=== PATIENT | male | born 1985 | race Caucasian/White ===

== ENCOUNTER 2019-03-20 09:02 | Emergency (ER) | payer BC, OTHER ==
[~2019-03-20] VITALS: Ht 188 cm; Wt 90.7 kg
[~2019-03-20 09:02] MED LIST: ALBU90OI INH; ALPR.25 PO; AMOCLA875 PO; AZIT500 PO; CEPH500 PO; CIPR500 PO; DIPATR PO; HYDACE10B; HYDACE5 PO; IBUP200 PO; PSEU30 PO; RXDIPATR PO; SULTRIDS PO
[2019-03-20] MEDS ORDERED: ONDA4ODT MM (09:14)
[2019-03-20] MEDS ORDERED: AMLO10 PO (09:15)
[2019-03-20 09:55] LABS: Source, Urine Clean Catch
[2019-03-20 09:58] LABS: Bilirubin, Urine Neg (Neg); Blood, Urine Neg (Neg); Glucose Qualitative, Urine Neg (Neg); Ketones, Urine 3+ (Neg); Leukocyte Esterase, Urine 1+ (Neg); Nitrite, Urine Neg (Neg); Protein, Urine 1+ (Neg); Urobilinogen, Urine NORM (Normal)
[2019-03-20 10:11] LABS: Appearance, Urine Clear (Clear); Color, Urine Yellow (P-Yellow)
[2019-03-20 10:14] LABS: Bacteria Rare /hpf; Red Blood Cells, Urine Rare /hpf (0-2); Squamous Epithelial Cells Not Seen /hpf (Few); White Blood Cells, Urine 0-2 /hpf (0-5)
[2019-03-20 10:25] LABS: BASOPHILS ABSOLUTE AUTO 0.08 K/mm3 (0.00-0.23); BASOPHILS PERCENT AUTO 0 % (0-2); EOSINOPHILS ABSOLUTE AUTO 0.06 K/mm3 (0.00-0.68); EOSINOPHILS PERCENT AUTO 0 % (0-6); Hematocrit 47.8 % (37.0-53.0); Hemoglobin 16.7 g/dL (13.5-17.5); IMMATURE GRAN ABSOLUTE AUTO 0.11 K/mm3 (0.00-0.10); IMMATURE GRAN PERCENT AUTO 1 % (0-1); LYMPHOCYTES ABSOLUTE AUTO 1.81 K/mm3 (0.84-5.20); LYMPHOCYTES PERCENT AUTO 8 % (21-46); MONOCYTES ABSOLUTE AUTO 1.45 K/mm3 (0.16-1.47); MONOCYTES PERCENT AUTO 6 % (4-13); Mean Corpuscular HGB 31.2 pg (26.0-34.0); Mean Corpuscular HGB Conc 34.9 g/dL (31.5-36.5); Mean Corpuscular Volume 89 fL (80-100); Mean Platelet Volume 10.5 fL (9.1-12.4); NEUTROPHILS ABSOLUTE AUTO 19.86 K/mm3 (1.96-9.15); NEUTROPHILS PERCENT AUTO 85 % (41-73); Platelet Count 382 K/mm3 (150-400); RDW Standard Deviation 42.5 fL (35.1-46.3); Red Blood Cell Count 5.35 M/mm3 (4.30-5.90); White Blood Cell Count 23.37 K/mm3 (4.00-11.30)
[2019-03-20 10:40] LABS: Alanine Aminotransfer (ALT/SGP 42 U/L (12-78); Albumin, Blood 4.9 g/dL (3.4-5.0); Albumin/Globulin Ratio 1.4 (0.8-1.8); Alk Phos 67 U/L (50-136); Anion Gap 10 mmol/L (6-16); Aspartate Aminotrans (AST/SGOT 19 U/L (12-37); Bilirubin, Total 0.7 mg/dL (0.1-1.0); Blood Urea Nitrogen 14 mg/dL (8-24); Bun/Creatinine Ratio 14.3 (12.0-20.0); CO2, Blood 23 mmol/L (21-32); Calcium, Blood 10.3 mg/dL (8.5-10.1); Chloride, Blood 108 mmol/L (98-108); Creatinine, Blood 0.98 mg/dL (0.60-1.20); Globulin, Blood 3.5 g/dL (2.2-4.0); Glomerular Filtration Rate >60 (60-); Glucose, Blood 115 mg/dL (70-99); Potassium, Blood 3.7 mmol/L (3.5-5.5); Sodium, Blood 141 mmol/L (136-145); Total Protein, Blood 8.4 g/dL (6.4-8.2)
[2019-03-20] MEDS ORDERED: Flagyl500 MG PO (12:37)
[2019-03-20] MEDS ORDERED: Colace100 MG PO (12:37)
[2019-03-20] MEDS ORDERED: Cipro500 MG PO (12:37)
[2019-03-20] MEDS ORDERED: Norco 5-325 Ta1 EACH PO (12:37)
== END 2019-03-20 12:49 | disposition home or self-care (01) ==
LOC: ER 09:02
PROVIDERS: Emergency Medicine
DX: K57.32 Diverticulitis of large intestine without perforation or abscess without bleeding (principal); F17.200 Nicotine dependence, unspecified, uncomplicated; Z79.899 Other long term (current) drug therapy
CPT/HCPCS: 36415; 74176; 80053; 81001; 83690; 85025; 87086; 96361; 96374; 96375; 99284-25; J1170; J2405; J7030

== ENCOUNTER 2019-03-24 23:18 | Inpatient (IN) | payer BC, OTHER ==
[~2019-03-24] VITALS: Ht 188 cm; Wt 90.7 kg
[~2019-03-24 23:18] MED LIST changes: +AMLO10 PO; +Cipro500 MG PO; +Colace100 MG PO; +Flagyl500 MG PO; +Norco 5-325 Ta1 EACH PO; +ONDA4ODT MM
[2019-03-25 00:42] LABS: BASOPHILS ABSOLUTE AUTO 0.05 K/mm3 (0.00-0.23); BASOPHILS PERCENT AUTO 0 % (0-2); EOSINOPHILS ABSOLUTE AUTO 0.45 K/mm3 (0.00-0.68); EOSINOPHILS PERCENT AUTO 4 % (0-6); Hemoglobin 14.4 g/dL (13.5-17.5); IMMATURE GRAN ABSOLUTE AUTO 0.08 K/mm3 (0.00-0.10); IMMATURE GRAN PERCENT AUTO 1 % (0-1); LYMPHOCYTES ABSOLUTE AUTO 1.74 K/mm3 (0.84-5.20); LYMPHOCYTES PERCENT AUTO 14 % (21-46); MONOCYTES ABSOLUTE AUTO 1.23 K/mm3 (0.16-1.47); MONOCYTES PERCENT AUTO 10 % (4-13); Mean Corpuscular HGB 30.7 pg (26.0-34.0); Mean Corpuscular HGB Conc 34.3 g/dL (31.5-36.5); Mean Corpuscular Volume 90 fL (80-100); NEUTROPHILS ABSOLUTE AUTO 9.29 K/mm3 (1.96-9.15); NEUTROPHILS PERCENT AUTO 72 % (41-73); Platelet Count 379 K/mm3 (150-400); RDW Coefficient Variation 12.7 % (11.7-14.2); RDW Standard Deviation 41.9 fL (35.1-46.3); Red Blood Cell Count 4.69 M/mm3 (4.30-5.90); White Blood Cell Count 12.84 K/mm3 (4.00-11.30)
[2019-03-25 01:00] LABS: Alanine Aminotransfer (ALT/SGP 20 U/L (12-78); Albumin, Blood 3.7 g/dL (3.4-5.0); Albumin/Globulin Ratio 0.9 (0.8-1.8); Alk Phos 67 U/L (50-136); Anion Gap 8 mmol/L (6-16); Aspartate Aminotrans (AST/SGOT 12 U/L (12-37); Bilirubin, Total 0.3 mg/dL (0.1-1.0); Blood Urea Nitrogen 9 mg/dL (8-24); Bun/Creatinine Ratio 9.6 (12.0-20.0); CO2, Blood 27 mmol/L (21-32); Chloride, Blood 104 mmol/L (98-108); Creatinine, Blood 0.94 mg/dL (0.60-1.20); Globulin, Blood 3.9 g/dL (2.2-4.0); Glomerular Filtration Rate >60 (60-); Glucose, Blood 100 mg/dL (70-99); Potassium, Blood 3.3 mmol/L (3.5-5.5); Sodium, Blood 139 mmol/L (136-145); Total Protein, Blood 7.6 g/dL (6.4-8.2)
--- NOTE | 2019-03-25 07:32 | NUR ---
TRANSFER NOTE: PT ARRIVED TO UNIT @ 0640. INDEPENDENTLY AMBULATES TO BED. GAIT IS STEADY. PT IS A&O X 4, COOPERATIVE, KIND. PT ADMITTED FOR DIVERTICULITIS c 2 SMALL ABSCESSES. PT HAS MINIMAL HEALTH HX, HTN AND PREVIOUS PNA NOTED. ADBOMEN IS DISTENDED, PT REPORTS NO BM X3 DAYS. RLQ IS MORE TENDER AND PAINFUL. PT RATES PAIN 1 OUT OF 10.
--- NOTE | 2019-03-25 15:34 | NUR ---
SUMMARY PT IS A/O X4, PLEASANT/COOPERATIVE. AMBULATES INDEPENDANT, DR ENCOURAGE HIM TO AMBULATE IN [place] PERIODICALLY, HE HAS BEEN UP MULT X'S TODAY. DX DIVERTICULITIS WITH [address] SMITH IN TO SEE HIM STATE NO NEED FOR SURG @ THIS TIME, CONTINUE NPO FOR NOW, CONTINUE CURRENT IV ANTIBX. PT STATE INTERMITTANT NAUSEA, PRN ZOFRAN THIS AFTERNOON FOR RELIEF. HE STATE L LOWER ABD PAIN, PRN FENTANYL 50 MCG GIVEN FOR RELIEF/CONTROL. HE STATE HAS BEEN PASSING GAS, 1 MED LOOSE STOOL TODAY. VSS.
[2019-03-26 05:48] LABS: BASOPHILS ABSOLUTE AUTO 0.07 K/mm3 (0.00-0.23); BASOPHILS PERCENT AUTO 1 % (0-2); EOSINOPHILS ABSOLUTE AUTO 0.21 K/mm3 (0.00-0.68); EOSINOPHILS PERCENT AUTO 2 % (0-6); Hematocrit 42.5 % (37.0-53.0); Hemoglobin 14.1 g/dL (13.5-17.5); IMMATURE GRAN PERCENT AUTO 2 % (0-1); LYMPHOCYTES ABSOLUTE AUTO 1.91 K/mm3 (0.84-5.20); LYMPHOCYTES PERCENT AUTO 15 % (21-46); MONOCYTES ABSOLUTE AUTO 1.03 K/mm3 (0.16-1.47); MONOCYTES PERCENT AUTO 8 % (4-13); Mean Corpuscular HGB 30.5 pg (26.0-34.0); Mean Corpuscular HGB Conc 33.2 g/dL (31.5-36.5); Mean Corpuscular Volume 92 fL (80-100); Mean Platelet Volume 10.2 fL (9.1-12.4); NEUTROPHILS ABSOLUTE AUTO 9.14 K/mm3 (1.96-9.15); NEUTROPHILS PERCENT AUTO 73 % (41-73); Platelet Count 383 K/mm3 (150-400); RDW Coefficient Variation 13.2 % (11.7-14.2); RDW Standard Deviation 44.8 fL (35.1-46.3); Red Blood Cell Count 4.63 M/mm3 (4.30-5.90); White Blood Cell Count 12.56 K/mm3 (4.00-11.30)
[2019-03-26 06:17] LABS: Alanine Aminotransfer (ALT/SGP 18 U/L (12-78); Albumin, Blood 3.4 g/dL (3.4-5.0); Albumin/Globulin Ratio 0.9 (0.8-1.8); Alk Phos 60 U/L (50-136); Anion Gap 14 mmol/L (6-16); Aspartate Aminotrans (AST/SGOT 11 U/L (12-37); Bilirubin, Total 0.3 mg/dL (0.1-1.0); Blood Urea Nitrogen 7 mg/dL (8-24); Bun/Creatinine Ratio 8.1 (12.0-20.0); CO2, Blood 14 mmol/L (21-32); Calcium, Blood 8.4 mg/dL (8.5-10.1); Chloride, Blood 113 mmol/L (98-108); Creatinine, Blood 0.86 mg/dL (0.60-1.20); Globulin, Blood 3.6 g/dL (2.2-4.0); Glomerular Filtration Rate >60 (60-); Glucose, Blood 68 mg/dL (70-99); Potassium, Blood 4.4 mmol/L (3.5-5.5); Sodium, Blood 141 mmol/L (136-145)
--- NOTE | 2019-03-26 06:44 | NUR ---
SHIFT SUMMARY PT IS A 33 Y/O MALE, ADMITTED FOR DIVERTICULITIS WITH ABSCESSES. HE IS A&O X 4, AND INDEPENDENT IN THE ROOM. THE PT DID REPORT SOME MILD L SIDE ABD AND BACK PAIN, FOR WHICH HE WAS MEDICATED X 1 WITH PRN NORCO. HE ALSO REPORTED OCCASIONAL NAUSEA THROUGHOUT THE NIGHT, FOR WHICH HE WAS MEDICATED X 1 WITH PRN REGLAN AND ZOFRAN. THE PT REPORTED THAT HE WAS FEELING "BETTER", THAT THE ABD BLOATING HAD DECREASED, AND THAT HE HOPED TO BE TAKEN OFF NPO AND BE ABLE TO EAT AND DRINK. VITALS REMAINED STABLE. NO OTHER ACUTE CHANGES IN PT CONDITION NOTED. WILL CONTINUE TO MONITOR AND TREAT PER EMAR.
--- NOTE | 2019-03-26 18:08 | NUR ---
SHIFT SUMMARY. PT DENIES SOB, N/V, PAIN. PT TOLERATED CLEAR LIQUIDS THIS AM, HAD A SMALL AMOUNT OF REGULAR DIET FOR LUNCH AND ATE 100% DINNER. CONTINUES WITH IV ABX. NO NEW CHANGES OR CONCERNS.
--- NOTE | 2019-03-26 18:19 | NUR ---
LATE ENTRY. PT STATES THAT HE HASN'T HAD A BEER IN 5 DAYS. CIWA 0 THIS SHIFT.
[2019-03-27 05:24] LABS: BASOPHILS PERCENT AUTO 1 % (0-2); EOSINOPHILS ABSOLUTE AUTO 0.39 K/mm3 (0.00-0.68); EOSINOPHILS PERCENT AUTO 3 % (0-6); Hematocrit 41.8 % (37.0-53.0); Hemoglobin 13.8 g/dL (13.5-17.5); IMMATURE GRAN PERCENT AUTO 1 % (0-1); LYMPHOCYTES ABSOLUTE AUTO 2.01 K/mm3 (0.84-5.20); LYMPHOCYTES PERCENT AUTO 14 % (21-46); MONOCYTES ABSOLUTE AUTO 1.25 K/mm3 (0.16-1.47); MONOCYTES PERCENT AUTO 9 % (4-13); Mean Corpuscular HGB 29.9 pg (26.0-34.0); Mean Corpuscular Volume 91 fL (80-100); Mean Platelet Volume 10.2 fL (9.1-12.4); NEUTROPHILS ABSOLUTE AUTO 10.32 K/mm3 (1.96-9.15); NEUTROPHILS PERCENT AUTO 72 % (41-73); Platelet Count 367 K/mm3 (150-400); RDW Coefficient Variation 13.2 % (11.7-14.2); RDW Standard Deviation 43.1 fL (35.1-46.3); Red Blood Cell Count 4.61 M/mm3 (4.30-5.90); White Blood Cell Count 14.27 K/mm3 (4.00-11.30)
--- NOTE | 2019-03-27 08:08 | NUR ---
SHIFT SUMMARY PT HAD NO ISSUES OR COMPLAINTS. PT SLEPT T/O SHIFT. PT SLEEPING BREATHING EASY. CALL LIGHT IN REACH.
--- NOTE | 2019-03-27 17:52 | NUR ---
SHIFT SUMMARY. PT DENIES SOB, N/V. MILD LOWER UMBILICAL ABD PAIN REPORTED WITH PALPATION THAT IS REPRODUCABLE. NO PAIN AT REST. PT DENIED NEED FOR PAIN MEDICATION. PT WITH GOOD MEAL INTAKE WITH REGULAR DIET. PT REPORTS HAVING BM'S AND PASSING FLATUS. REPEAT CT WITH CONTRAST COMPLETED TODAY. NO NEW CHANGES.
[2019-03-28 04:53] LABS: BASOPHILS ABSOLUTE AUTO 0.07 K/mm3 (0.00-0.23); BASOPHILS PERCENT AUTO 1 % (0-2); EOSINOPHILS ABSOLUTE AUTO 0.34 K/mm3 (0.00-0.68); EOSINOPHILS PERCENT AUTO 3 % (0-6); Hematocrit 42.3 % (37.0-53.0); Hemoglobin 14.4 g/dL (13.5-17.5); IMMATURE GRAN ABSOLUTE AUTO 0.24 K/mm3 (0.00-0.10); IMMATURE GRAN PERCENT AUTO 2 % (0-1); LYMPHOCYTES ABSOLUTE AUTO 1.88 K/mm3 (0.84-5.20); LYMPHOCYTES PERCENT AUTO 16 % (21-46); MONOCYTES ABSOLUTE AUTO 0.99 K/mm3 (0.16-1.47); MONOCYTES PERCENT AUTO 9 % (4-13); Mean Corpuscular HGB 30.3 pg (26.0-34.0); Mean Corpuscular Volume 89 fL (80-100); Mean Platelet Volume 9.9 fL (9.1-12.4); NEUTROPHILS ABSOLUTE AUTO 8.13 K/mm3 (1.96-9.15); NEUTROPHILS PERCENT AUTO 70 % (41-73); Platelet Count 438 K/mm3 (150-400); RDW Standard Deviation 42.5 fL (35.1-46.3); Red Blood Cell Count 4.76 M/mm3 (4.30-5.90); White Blood Cell Count 11.65 K/mm3 (4.00-11.30)
--- NOTE | 2019-03-28 05:10 | NUR ---
NOC SHIFT SUMMARY PT HAS BEEN PLEASANT AND COOPERATIVE WITH CARE THIS NIGHT. HAS NOT HAD ANY PAIN COMPLAINTS. VSS. NO ACUTE CHANGES NOTED THIS NIGHT. CURRENTLY APPEARS TO BE SLEEPING RESTFULLY. WILL CONTINUE TO MONITOR.
[2019-03-28 11:26] LABS: Anion Gap 6 mmol/L (6-16); Blood Urea Nitrogen 5 mg/dL (8-24); CO2, Blood 25 mmol/L (21-32); Calcium, Blood 8.9 mg/dL (8.5-10.1); Chloride, Blood 109 mmol/L (98-108); Glomerular Filtration Rate >60 (60-); Glucose, Blood 102 mg/dL (70-99); Potassium, Blood 3.7 mmol/L (3.5-5.5); Sodium, Blood 140 mmol/L (136-145)
[2019-03-28] MEDS ORDERED: Augmentin 875-1 EACH PO (14:56)
--- NOTE | 2019-03-28 15:16 | NUR ---
SUMMARY/DISCHARGE PT DISCHARGED TO HOME, PT AND SPOUSE VERBALIZED UNDERSTANDING OF DISCHARGE INSTRUCTIONS, PT ALREADY HAS A FOLLOW UP APPOINTMENT WITH HIS PCP, PT DECLINED A WHEELCHAIR AND WAS ABLE TO AMBULATE SAFELY TO THE ELEVATOR
--- NOTE | 2019-03-30 08:41 | NUR ---
LATE NOTE PT DISCHARGE ORDER SAID 500 MG IV FLAGYL TID, CONFIRMED WITH DR LOPES THE DOSE SHOULD BE 500 MG PO BID, PT INFORMED OF THE CORRECT DOSE AND CORRECTED DOSE SENT TO PT'S PHARMACY
== END 2019-03-28 15:07 | disposition home or self-care (01) | DRG 392 ==
LOC: ER 23:18 → MEDS 03-25 05:28
PROVIDERS: Emergency Medicine; Hospitalist; Surgery; ADMIT Internal Medicine
DX: K57.20 Diverticulitis of large intestine with perforation and abscess without bleeding (principal); E87.2 Acidosis; E87.6 Hypokalemia; I10 Essential (primary) hypertension; J45.909 Unspecified asthma, uncomplicated; F17.210 Nicotine dependence, cigarettes, uncomplicated; Z79.899 Other long term (current) drug therapy
CPT/HCPCS: 36415; 74018; 74177; 80048; 80053; 85025; 85027; 94760; 96361; 96365-59; 96375; 99285-25; A9270-GY; J1170; J1885; J2405; J2543; J2765; J3010; J3480; J7030; J7050; Q9967

== ENCOUNTER 2019-05-16 10:38 | Emergency (ER) | payer BC, OTHER ==
[~2019-05-16] VITALS: Ht 188 cm; Wt 90.7 kg
[~2019-05-16 10:38] MED LIST changes: +Augmentin 875-1 EACH PO
[2019-05-16 11:26] LABS: BASOPHILS ABSOLUTE AUTO 0.07 K/mm3 (0.00-0.23); BASOPHILS PERCENT AUTO 0 % (0-2); EOSINOPHILS ABSOLUTE AUTO 0.11 K/mm3 (0.00-0.68); EOSINOPHILS PERCENT AUTO 1 % (0-6); Hematocrit 44.7 % (37.0-53.0); Hemoglobin 15.5 g/dL (13.5-17.5); IMMATURE GRAN ABSOLUTE AUTO 0.07 K/mm3 (0.00-0.10); IMMATURE GRAN PERCENT AUTO 0 % (0-1); LYMPHOCYTES ABSOLUTE AUTO 1.84 K/mm3 (0.84-5.20); LYMPHOCYTES PERCENT AUTO 12 % (21-46); MONOCYTES ABSOLUTE AUTO 1.04 K/mm3 (0.16-1.47); MONOCYTES PERCENT AUTO 7 % (4-13); Mean Corpuscular HGB 30.5 pg (26.0-34.0); Mean Corpuscular HGB Conc 34.7 g/dL (31.5-36.5); Mean Corpuscular Volume 88 fL (80-100); NEUTROPHILS ABSOLUTE AUTO 12.63 K/mm3 (1.96-9.15); NEUTROPHILS PERCENT AUTO 80 % (41-73); Platelet Count 358 K/mm3 (150-400); RDW Coefficient Variation 13.3 % (11.7-14.2); Red Blood Cell Count 5.09 M/mm3 (4.30-5.90); White Blood Cell Count 15.76 K/mm3 (4.00-11.30)
[2019-05-16 11:46] LABS: Alanine Aminotransfer (ALT/SGP 31 U/L (12-78); Albumin, Blood 4.6 g/dL (3.4-5.0); Albumin/Globulin Ratio 1.3 (0.8-1.8); Alk Phos 78 U/L (50-136); Anion Gap 7 mmol/L (6-16); Aspartate Aminotrans (AST/SGOT 18 U/L (12-37); Bilirubin, Total 0.8 mg/dL (0.1-1.0); Blood Urea Nitrogen 10 mg/dL (8-24); Bun/Creatinine Ratio 11.3 (12.0-20.0); CO2, Blood 24 mmol/L (21-32); Calcium, Blood 9.4 mg/dL (8.5-10.1); Chloride, Blood 110 mmol/L (98-108); Creatinine, Blood 0.88 mg/dL (0.60-1.20); Globulin, Blood 3.6 g/dL (2.2-4.0); Glomerular Filtration Rate >60 (60-); Glucose, Blood 100 mg/dL (70-99); Potassium, Blood 3.7 mmol/L (3.5-5.5); Sodium, Blood 141 mmol/L (136-145); Total Protein, Blood 8.2 g/dL (6.4-8.2)
[2019-05-16] MEDS ORDERED: CEFP200 PO (12:25)
[2019-05-16] MEDS ORDERED: Flagyl500 MG PO (12:25)
== END 2019-05-16 13:22 | disposition home or self-care (01) ==
LOC: ER 10:38
PROVIDERS: Physician Assistant
DX: K57.32 Diverticulitis of large intestine without perforation or abscess without bleeding (principal); F17.200 Nicotine dependence, unspecified, uncomplicated; Z79.899 Other long term (current) drug therapy; Z91.048 Other nonmedicinal substance allergy status
CPT/HCPCS: 36415; 74176; 80053; 83690; 85025; 96365; 99284-25; J2543

== ENCOUNTER 2019-09-12 06:49 | Day surgery (SDC) | payer BC, OTHER ==
[~2019-09-12] VITALS: Ht 188 cm; Wt 85.8 kg
[~2019-09-12 06:49] MED LIST changes: +CEFP200 PO
== END 2019-09-12 08:50 | disposition home or self-care (01) ==
LOC: ORSCSDS 06:49
PROVIDERS: Surgery
PROC: 0DJD8ZZ Inspection of Lower Intestinal Tract, Via Natural or Artificial Opening Endoscopic (ICD-10-PCS; principal; 2019-09-12 08:00)
DX: K57.30 Diverticulosis of large intestine without perforation or abscess without bleeding (principal); J45.909 Unspecified asthma, uncomplicated; Z79.51 Long term (current) use of inhaled steroids; Z79.899 Other long term (current) drug therapy
CPT/HCPCS: J0330; J0461; J2405; J2704; J7120

== ENCOUNTER 2019-09-13 05:58 | Inpatient (IN) | payer BC, OTHER ==
[~2019-09-13] VITALS: Ht 188 cm; Wt 85.6 kg
--- NOTE | 2019-09-13 06:25 | NUR ---
INTO [facility] ADMISSION STARTED VERIFIES NPO Ambulatory in Day Surgery History, Chart, Medications and Allergies reviewed before start of procedure.
[2019-09-13 07:10] LABS: BASOPHILS ABSOLUTE AUTO 0.06 K/mm3 (0.00-0.23); BASOPHILS PERCENT AUTO 1 % (0-2); EOSINOPHILS PERCENT AUTO 3 % (0-6); Hematocrit 41.7 % (37.0-53.0); Hemoglobin 14.5 g/dL (13.5-17.5); IMMATURE GRAN ABSOLUTE AUTO 0.03 K/mm3 (0.00-0.10); IMMATURE GRAN PERCENT AUTO 0 % (0-1); LYMPHOCYTES ABSOLUTE AUTO 2.71 K/mm3 (0.84-5.20); LYMPHOCYTES PERCENT AUTO 29 % (21-46); MONOCYTES PERCENT AUTO 9 % (4-13); Mean Corpuscular HGB 30.6 pg (26.0-34.0); Mean Corpuscular HGB Conc 34.8 g/dL (31.5-36.5); Mean Corpuscular Volume 88 fL (80-100); Mean Platelet Volume 9.6 fL (9.1-12.4); NEUTROPHILS ABSOLUTE AUTO 5.37 K/mm3 (1.96-9.15); NEUTROPHILS PERCENT AUTO 58 % (41-73); Platelet Count 310 K/mm3 (150-400); RDW Coefficient Variation 13.2 % (11.7-14.2); Red Blood Cell Count 4.74 M/mm3 (4.30-5.90); White Blood Cell Count 9.27 K/mm3 (4.00-11.30)
[2019-09-14 04:44] LABS: BASOPHILS ABSOLUTE AUTO 0.02 K/mm3 (0.00-0.23); BASOPHILS PERCENT AUTO 0 % (0-2); EOSINOPHILS ABSOLUTE AUTO 0.02 K/mm3 (0.00-0.68); EOSINOPHILS PERCENT AUTO 0 % (0-6); Hematocrit 30.2 % (37.0-53.0); Hemoglobin 10.2 g/dL (13.5-17.5); IMMATURE GRAN ABSOLUTE AUTO 0.03 K/mm3 (0.00-0.10); IMMATURE GRAN PERCENT AUTO 0 % (0-1); LYMPHOCYTES ABSOLUTE AUTO 2.35 K/mm3 (0.84-5.20); LYMPHOCYTES PERCENT AUTO 18 % (21-46); MONOCYTES ABSOLUTE AUTO 1.41 K/mm3 (0.16-1.47); MONOCYTES PERCENT AUTO 11 % (4-13); Mean Corpuscular HGB 30.3 pg (26.0-34.0); Mean Corpuscular HGB Conc 33.8 g/dL (31.5-36.5); Mean Corpuscular Volume 90 fL (80-100); Mean Platelet Volume 10.4 fL (9.1-12.4); NEUTROPHILS ABSOLUTE AUTO 9.31 K/mm3 (1.96-9.15); NEUTROPHILS PERCENT AUTO 71 % (41-73); Platelet Count 270 K/mm3 (150-400); RDW Coefficient Variation 13.4 % (11.7-14.2); Red Blood Cell Count 3.37 M/mm3 (4.30-5.90); White Blood Cell Count 13.14 K/mm3 (4.00-11.30)
[2019-09-14 05:06] LABS: Anion Gap 5 mmol/L (6-16); Blood Urea Nitrogen 6 mg/dL (8-24); Bun/Creatinine Ratio 6.3 (12.0-20.0); CO2, Blood 26 mmol/L (21-32); Chloride, Blood 107 mmol/L (98-108); Creatinine, Blood 0.95 mg/dL (0.60-1.20); Glomerular Filtration Rate >60 (60-); Glucose, Blood 114 mg/dL (70-99); Potassium, Blood 3.9 mmol/L (3.5-5.5); Sodium, Blood 138 mmol/L (136-145)
--- NOTE | 2019-09-14 06:32 | NUR ---
SHIFT SUMMARY: MARIN HAD A SIGMOID COLECTOMY YESTERDAY. HIS WOUND VAC DRESSING WAS CHANGED AT THE BEGINNING OF THE SHIFT DUE TO SATURATION. CURRENTLY, HE HAS A DIME SIZED AREA OF DRAINAGE WELL TWO PIN-HEAD SIZED AREAS. NO NEW DRAINAGE. THREE LAP SITES COVERED WITH GAUZE AND TAPE. HE HAS BEEN COMPLAINING OF 7/10 PAIN FOR WHICH IV DILAUDID IS EFFECTIVE. HE IS ABLE TO MAKE HIS NEEDS KNOWN. HE IS LYING IN BED WITH HIS CALL LIGHT IN REACH. HE WAS EDUCATED ON SPLINTING HIS INCISION AND LOG ROLLING.
--- NOTE | 2019-09-14 16:26 | NUR ---
SHIFT SUMMARY PT HAS DONE WELL TODAY. AMBULATED IN HALLWAY x 1. WITH GOAL OF TWO WALKS TODAY. PT STATES HE WILL WALK THIS EVENING. SURG SITE WNL. NAIK TO BE D/C'D TOMORROW AM.
--- NOTE | 2019-09-15 18:13 | NUR ---
SUMMARY: PT IS POD2 COLECTOMY. HAS DONE WELL TODAY, VSS, A/O. PAIN WELL MANAGED. CONTINUES TO HAVE BM'S, ABLE TO TOLERATE REG DIET, NO NAUSEA. SURGICAL SITES WNL. ENCOURAGING COUGH, DEEP BREATHE, AND MOBILITY. WILL CTM AND REPORT TO NOC RN
--- NOTE | 2019-09-16 07:39 | NUR ---
SUMMARY PT REQUIRING IV PAIN MEDS EARLY IN SHIFT. HWOEVER, AFTER PASSING INCREASED FLATUS AND STOOL, PT REPORTS PAIN WELL CONTROLLED WITH PO PAIN MEDS.
--- NOTE | 2019-09-16 10:00 | NUR ---
PT TAKING SHOWER AT THIS TIME
--- NOTE | 2019-09-16 19:30 | NUR ---
SUMMARY: NO CHANGE IN PT STATUS. DOING WELL POST OP DAY 3. PT TOOK MULTIPLE WALKS, TOLERATING DIET, PAIN SEEMS TO BE MANAGED WELL. PT REPORT PASSING QUITE A BIT OF GAS AND 2 LIQUID BM'S TODAY. NO SAFETY CONCERNS. REPORT GIVEN TO VLADIMIR CASH
--- NOTE | 2019-09-17 07:49 | NUR ---
SUMMARY UP IN HALLS VOIDING .HAVING BM. TOLERATING PO.PAIN CONTROLLED WITH PO MEDS.
--- NOTE | 2019-09-17 09:51 | NUR ---
TAMMY WOUND VAC REMOVED BY DR SMITH AT THIS TIME. MEDIPORE DRESSING PLACED.
[2019-09-17] MEDS ORDERED: HYDR1TAB94 PO (12:31)
--- NOTE | 2019-09-17 12:55 | NUR ---
DISCHARGE NOTE D/C INSTRUCTIONS GIVEN TO PT BY RN. HARD SCRIPT AND PRINTED INSTRUCTIONS SENT HOME WITH PT. REPORTS NO QUESTIONS OR CONCERNS. PAIN MANAGED WITH PO PAIN MEDS. PERSONAL BELONGINGS SENT WITH PT. PT TOLERATING FOOD, FLUIDS, VOIDING. WALKS IND. LEFT HOSPITAL WITH , WALKED OUT IND. EXTRA DRESSING SUPPLIES SENT WITH PT WELL.
== END 2019-09-17 12:55 | disposition home or self-care (01) | DRG 331 ==
LOC: SURS 05:58 → PRE IP 07:30 → SURS 13:35
PROVIDERS: Anesthesiology; ADMIT Surgery
PROC: 0DTN4ZZ Resection of Sigmoid Colon, Percutaneous Endoscopic Approach (ICD-10-PCS; principal; 2019-09-13 07:30)
DX: K57.32 Diverticulitis of large intestine without perforation or abscess without bleeding (principal); J45.909 Unspecified asthma, uncomplicated; F17.210 Nicotine dependence, cigarettes, uncomplicated
CPT/HCPCS: 36415; 80048; 85025; 86850; 86900; 86901; 88307; 94640; 94760; A9270-GY; J1100; J1170; J1650; J1885; J1956; J2250; J2405; J2704; J2710; J3010; J7120

== ENCOUNTER 2019-11-09 17:29 | Emergency (ER) | payer OTHER, BC ==
[~2019-11-09] VITALS: Ht 188 cm; Wt 93.0 kg
[~2019-11-09 17:29] MED LIST changes: +HYDR1TAB94 PO
[2019-11-09] MEDS ORDERED: Robaxin-750750 MG PO (20:18)
== END 2019-11-09 20:25 | disposition home or self-care (01) ==
LOC: ER 17:29
DX: S13.4XXA Sprain of ligaments of cervical spine, initial encounter (principal); S39.012A Strain of muscle, fascia and tendon of lower back, initial encounter; I10 Essential (primary) hypertension; J45.909 Unspecified asthma, uncomplicated; Z91.02 Food additives allergy status; Z79.899 Other long term (current) drug therapy; Z87.891 Personal history of nicotine dependence; V43.52XA Car driver injured in collision with other type car in traffic accident, initial encounter; Y92.411 Interstate highway as the place of occurrence of the external cause
CPT/HCPCS: 72040; 72070; 72100; 99283-25

== ENCOUNTER → 2020-06-04 | Outpatient (CLI) | payer BC, OTHER ==
[~2020-06-04] MED LIST changes: +Robaxin-750750 MG PO
[2020-06-04 09:52] LABS: BASOPHILS ABSOLUTE AUTO 0.07 K/mm3 (0.00-0.23); BASOPHILS PERCENT AUTO 1 % (0-2); EOSINOPHILS ABSOLUTE AUTO 0.24 K/mm3 (0.00-0.68); EOSINOPHILS PERCENT AUTO 2 % (0-6); Hematocrit 48.1 % (37.0-53.0); Hemoglobin 17.2 g/dL (13.5-17.5); IMMATURE GRAN ABSOLUTE AUTO 0.03 K/mm3 (0.00-0.10); IMMATURE GRAN PERCENT AUTO 0 % (0-1); LYMPHOCYTES ABSOLUTE AUTO 2.26 K/mm3 (0.84-5.20); LYMPHOCYTES PERCENT AUTO 22 % (21-46); MONOCYTES ABSOLUTE AUTO 0.68 K/mm3 (0.16-1.47); MONOCYTES PERCENT AUTO 7 % (4-13); Mean Corpuscular HGB 30.9 pg (26.0-34.0); Mean Corpuscular HGB Conc 35.8 g/dL (31.5-36.5); Mean Corpuscular Volume 87 fL (80-100); Mean Platelet Volume 9.9 fL (9.1-12.4); NEUTROPHILS ABSOLUTE AUTO 6.95 K/mm3 (1.96-9.15); NEUTROPHILS PERCENT AUTO 68 % (41-73); Platelet Count 339 K/mm3 (150-400); RDW Coefficient Variation 13.3 % (11.7-14.2); RDW Standard Deviation 41.7 fL (35.1-46.3); Red Blood Cell Count 5.56 M/mm3 (4.30-5.90); White Blood Cell Count 10.23 K/mm3 (4.00-11.30)
[2020-06-04 10:05] LABS: Alanine Aminotransfer (ALT/SGP 85 U/L (12-78); Albumin, Blood 4.7 g/dL (3.4-5.0); Albumin/Globulin Ratio 1.3 (0.8-1.8); Alk Phos 81 U/L (40-126); Anion Gap 12 mmol/L (6-16); Aspartate Aminotrans (AST/SGOT 35 U/L (12-37); Bilirubin, Total 0.9 mg/dL (0.1-1.0); Blood Urea Nitrogen 15 mg/dL (8-24); Bun/Creatinine Ratio 13.2 (12.0-20.0); CO2, Blood 24 mmol/L (21-32); Calcium, Blood 9.5 mg/dL (8.5-10.1); Chloride, Blood 105 mmol/L (98-108); Creatinine, Blood 1.14 mg/dL (0.60-1.20); Globulin, Blood 3.7 g/dL (2.2-4.0); Glomerular Filtration Rate >60 (60-); Glucose, Blood 134 mg/dL (70-99); Potassium, Blood 3.8 mmol/L (3.5-5.5); Sodium, Blood 141 mmol/L (136-145); Total Protein, Blood 8.4 g/dL (6.4-8.2)
[2020-06-04 10:06] LABS: Troponin I <0.017 ng/mL (0.000-0.040)
== END | disposition home or self-care (01) ==
LOC: LAB EV 09:44 → LAB SHORT 09:44
PROVIDERS: Physician Assistant Medical
DX: R07.9 Chest pain, unspecified (principal)
CPT/HCPCS: 80053; 84484; 85025; 85379; 85651; 86140

== ENCOUNTER → 2020-09-03 | Outpatient (CLI) | payer BC, OTHER | END | disposition home or self-care (01) | LOC: LAB 19:22 → LAB SHORT 19:22 | DX: L05.01 Pilonidal cyst with abscess (principal) | CPT/HCPCS: 87070; 87075; 87205 ==